=== PATIENT | female | born 1955 | race Asian ===

== ENCOUNTER 2019-11-20 09:20 | Emergency (ER) | payer BC ==
[2019-11-20 09:43] VITALS: BP 102/68; PULSE 66; TEMP 97.6; BMI 24.5
--- NOTE | 2019-11-20 10:08 | PDOC ---
History of Present Illness - General Chief Complaint: Injury Stated Complaint: RT KNEE INJURY Time Seen by Provider: 11/20/19 09:44 History Source: Patient Exam Limitations: No Limitations - History of Present Illness Initial Comments: 11/20/19 10:05 64-year-old female denies past medical history presents complaining of right knee pain status post mechanical trip and fall yesterday. [place] and fell landing directly on the right knee. Denies any other injuries or complaints. Patient took acetaminophen last night no pain medication today. ROS: R knee pain PE: GENERAL: well-appearing, NAD HEAD: NCAT EYES: Pupils equal, round and reactive to light, sclera anicteric, conjunctiva clear ENT: pharynx: no erythema, no exudate, uvula midline NECK: supple CHEST: nontender RESP: clear, no w/r/r CARDIO: rrr, no m/g/r ABD: +BS, soft, nontender, non distended BACK: no midline spinal ttp, no CVAT EXTREMITIES: Normal range of motion, right anterior knee swelling, no ecchymoses no bony tenderness to palpation NEUROLOGICAL: Normal speech, ambulating with slight limp SKIN: Warm, Dry Is this a multiple visit Asthma Patient?: No Past History - Past Medical History Allergies/Adverse Reactions: Allergies Allergy/AdvReac Type Severity Reaction Status Date / Time No Known Allergies Allergy Verified 11/20/19 09:38 - Psycho Social/Smoking Cessation Hx Smoking History: Never smoked Have you smoked in the past 12 months: No Hx Alcohol Use: No Drug/Substance Use Hx: No *Physical Exam - Vital Signs Last Vital Signs Temp Pulse Resp BP Pulse Ox 97.6 F 66 16 102/68 100 11/20/19 09:40 11/20/19 09:40 11/20/19 09:40 11/20/19 09:40 11/20/19 09:40 ED Treatment Course - RADIOLOGY Radiology Studies Ordered: Category Date Time Status KNEE 3 POS-RIGHT [RAD] Stat Radiology 11/20/19 09:54 Taken Medical Decision Making - Medical Decision Making 11/20/19 10:18 64-year-old female with no past medical history complaining of right knee pain status post mechanical fall yesterday. Right knee film -no acute fracture Tavon wrap applied to right knee P.o. ibuprofen Note for work Follow-up with orthopedics Discharge - Discharge Information Problems reviewed: Yes Clinical Impression/Diagnosis: Knee pain Qualifiers: Chronicity: acute Laterality: right Qualified Code(s): M25.561 - Pain in right knee Condition: Stable Disposition: HOME - Admission No - Follow up/Referral Referrals: ON STAFF,NOT [Primary Care Provider] - Adrien Griffith MD [Staff Physician] - - Patient Discharge Instructions Additional Instructions: Take ibuprofen 600 mg every 6 hours as needed for pain Rest, elevate, wear Tavon bandage for comfort Follow-up with orthopedics within 1 week Note for work given - Post Discharge Activity Work/Back to School Note: Back to Work
[2019-11-20] MEDS ORDERED: IBUPROFEN 600 MG TABLET (FP) PO ONE ×2 (10:24→10:28)
== END 2019-11-20 10:30 | disposition home or self-care (01) ==
LOC: JERFT 09:20
DX: S89.81XA Other specified injuries of right lower leg, initial encounter (principal); M25.561 Pain in right knee; W01.0XXA Fall on same level from slipping, tripping and stumbling without subsequent striking against object, initial encounter; Y93.02 Activity, running; Y92.89 Other specified places as the place of occurrence of the external cause; Y99.8 Other external cause status
CPT/HCPCS: 73562-TC-RT-FY; 99283-25